=== PATIENT | male | born 1990 | race Caucasian/White ===

== ENCOUNTER 2017-11-10 10:22 | Emergency (ER) | payer BC ==
[~2017-11-10] VITALS: Ht 185.4 cm; Wt 145.0 kg
[2017-11-10] VITALS (7 sets, daily range): BP systolic 119–183; BP diastolic 59–88; PULSE 68–70; RESP 18–20; TEMP 98.3; O2SAT 97–99
[2017-11-10] MEDS ORDERED: SODIUM CHLOR 0.9% 1000 ML INJ 1,000 ML IV SCH (10:49)
[2017-11-10] MEDS ORDERED: ONDANSETRON HCL 4 MG/2 ML VIAL IVP ONE (11:00)
[2017-11-10] MEDS ORDERED: SODIUM CHLORIDE 0.9% FLUSH 10 ML FLUSH IV FLUSH PRN (11:00)
[2017-11-10] MEDS ORDERED: DICYCLOMINE HCL 20 MG/2 ML VIAL IM ONE (11:00)
[2017-11-10 11:45] LABS: BASOPHIL % 0.2 % (0.0-2.0); EOSINOPHIL % 0.4 % (0.0-4.0); HEMATOCRIT 41.6 % (39.0-51.0); HEMOGLOBIN 14.2 GM/DL (13.0-17.0); LYMPHOCYTE # 1.4 TH/MM3 (1.0-4.8); MEAN CELL VOLUME 86.5 FL (80.0-100.0); MEAN CORPUSCULAR HEMOGLOBIN 29.5 PG (27.0-34.0); MEAN CORPUSCULAR HGB CONC 34.1 % (32.0-36.0); MEAN PLATELET VOLUME 8.4 FL (7.0-11.0); MONO % 6.9 % (0.0-8.0); MONOCYTE # 0.6 TH/MM3 (0-0.9); NEUT % 75.5 % (16.0-70.0); PLATELET COUNT 298 TH/MM3 (150-450); RED CELL DISTRIBUTION WIDTH 14.2 % (11.6-17.2)
--- NOTE | 2017-11-10 11:47 | RADRPT ---
EXAM DATE/TIME: 11/10/2017 11:05 [facility] COMPARISON: No previous studies available for comparison. INDICATIONS : Pain behind sternum, across lower chest and upper abdomen that began this morning MEDICAL HISTORY : None. SURGICAL HISTORY : None. ENCOUNTER: Initial ACUITY: 1 day PAIN SCORE: 10/10 LOCATION: Bilateral chest FINDINGS: A single view of the chest demonstrates the lungs to be symmetrically aerated without evidence of mas s, infiltrate or effusion. The cardiomediastinal contours are unremarkable. Osseous structures are intact. CONCLUSION: No acute cardiopulmonary process. Jeovany Blanton MD on November 10, 2017 at 11:46 Board Certified Radiologist. This report was verified electronically.
--- NOTE | 2017-11-10 11:49 | RADRPT ---
EXAM DATE/TIME: 11/10/2017 11:06 [facility] COMPARISON: No previous studies available for comparison. INDICATIONS : Pain across both upper quadrants that began this morning MEDICAL HISTORY : None. SURGICAL HISTORY : None. ENCOUNTER: Initial ACUITY: 1 day PAIN SCORE: 10/10 LOCATION: Bilateral abdomen FINDINGS: A single erect view of the abdomen demonstrates the lower lungs to be clear. No evidence of free int raperitoneal gas. The visualized bowel loops are unremarkable. CONCLUSION: Radiographically benign abdomen. Jeovany Blanton MD on November 10, 2017 at 11:46 Board Certified Radiologist. This report was verified electronically.
[2017-11-10 11:57] LABS: INTERNATIONAL NORMALIZED RATIO 1.1 RATIO; PROTHROMBIN TIME - PATIENT 10.7 SEC (9.8-11.6)
[2017-11-10 12:07] LABS: ALBUMIN 3.5 GM/DL (3.4-5.0); AST (GOT) 15 U/L (15-37); BICARBONATE 26.2 MEQ/L (21.0-32.0); BLOOD UREA NITROGEN 6 MG/DL (7-18); CALCIUM 8.6 MG/DL (8.5-10.1); CHLORIDE 110 MEQ/L (98-107); CREATININE 0.91 MG/DL (0.60-1.30); GLOMERULAR FILTRATION RATE 99 ML/MIN (>89); GLUCOSE,RANDOM 94 MG/DL (74-106); SODIUM (NA) 142 MEQ/L (136-145)
[2017-11-10 12:10] LABS: ALKALINE PHOSPHATASE 73 U/L (45-117); ALT (GPT) 35 U/L (12-78); TOTAL BILIRUBIN ADULT 0.4 MG/DL (0.2-1.0); TOTAL PROTEIN 7.5 GM/DL (6.4-8.2)
[2017-11-10] MEDS ORDERED: DIATRIZOATE MEGLUM/DIATRIZOATE SOD 9 ML CUP ONE (12:57)
--- NOTE | 2017-11-10 14:20 | PD ---
HPI Chief Complaint: Abdominal Pain Time Seen by Provider: 10:46 Travel History International Travel<30 days: No Contact w/Intl Traveler<30days: No Traveled to known affect area: No History of Present Illness HPI This is a 26-year-old male with no reported past medical history, presents from work with complaints of chest pain and upper abdominal pain that started suddenly while at work. Patient reports that it is a sharp 8 out of 10 pain. There is radiation from his epigastrium into his mid chest. He states there is no associated nausea. He does report he had loose stools that were darker than normal over the last 24 hours. He denies any vomiting. He denies any nausea. He states he has not had previous pain like this before. There is no history of coronary artery disease. There is no history of pulmonary problems. There is no other complaints at the time of my examination. PFSH Past Medical History Medical History: Denies Significant Hx ?: Not Past Surgical History Surgical History: No Previous Surgery Social History Alcohol Use: Yes (occassional) Tobacco Use: No Substance Use: No Allergies-Medications (Allergen,Severity, Reaction): Coded Allergies: No Known Allergies (Unverified , 11/10/17) Reported Meds & Prescriptions Reported Meds & Active Scripts Active Prevacid (Lansoprazole) 30 Mg Capdr 30 Mg PO DAILY 30 Days Azithromycin 500 Mg Tab 500 Mg PO DAILY Review of Systems Except as stated in HPI: all other systems reviewed are Neg General / Constitutional: No: Fever, Chills HENT: No: Headaches, Lightheadedness, Neck Pain Cardiovascular: Positive: Chest Pain or Discomfort, No: Palpitations, Irregular Rhythm Respiratory: No: Cough, Shortness of Breath Gastrointestinal: Positive: Diarrhea ( loose stools that were darker than normal), Abdominal Pain (Epigastric), No: Nausea, Vomiting, Hematochezia Genitourinary: No: Frequency, Dysuria Musculoskeletal: No: Weakness, Pain Neurologic: No: Weakness, Dizziness Physical Exam Narrative GENERAL: Well-developed well-nourished male in no acute respiratory distress. SKIN: Focused skin assessment warm/dry. Patient does have old scars in his anterior upper chest. This appears to be related to a juvenile skin condition. HEAD: Atraumatic. Normocephalic. EYES: No scleral icterus. No injection or drainage. ENT: No nasal bleeding or discharge. Mucous membranes pink and moist. NECK: Trachea midline. Supple. CARDIOVASCULAR: Regular rate and rhythm. No murmur appreciated. RESPIRATORY: No accessory muscle use. Clear to auscultation. Breath sounds equal bilaterally. GASTROINTESTINAL: Abdomen soft, obese, nondistended. There is tenderness to palpation in his upper abdominal area bilaterally. There is no rebound but there is voluntary guarding. MUSCULOSKELETAL: No obvious deformities. No clubbing. No cyanosis. No edema. NEUROLOGICAL: Awake and alert. No obvious cranial nerve deficits. Motor grossly within normal limits. Normal speech. RECTAL EXAM: In the presence of the nurse, Parris. No masses or tenderness, stool is brown. Tested Hemoccult negative. Data Data Last Documented VS Vital Signs Date Time Temp Pulse Resp B/P (MAP) Pulse Ox O2 Delivery O2 Flow Rate FiO2 11/10/17 16:00 70 18 124/76 (92) 98 Room Air 11/10/17 10:41 98.3 Orders Orders Complete Blood Count With Diff (11/10/17 10:49) Comprehensive Metabolic Panel (11/10/17 10:49) Lipase (11/10/17 10:49) Prothrombin Time / Inr (Pt) (11/10/17 10:49) Act Partial Throm Time (Ptt) (11/10/17 10:49) Urinalysis - C+S If Indicated (11/10/17 10:49) Iv Access Insert/Monitor (11/10/17 10:49) Ecg Monitoring (11/10/17 10:49) Oximetry (11/10/17 10:49) Ondansetron Inj (Zofran Inj) (11/10/17 11:00) Sodium Chlor 0.9% 1000 Ml Inj (Ns 1000 M (11/10/17 10:49) Sodium Chloride 0.9% Flush (Ns Flush) (11/10/17 11:00) Abdomen, Upright Only (11/10/17 10:49) Chest, Single Ap (11/10/17 10:49) Dicyclomine Inj (Bentyl Inj) (11/10/17 11:00) Electrocardiogram (11/10/17 10:42) Ct Abd/Pel W Iv Contrast(Rout) (11/10/17 12:35) Oral Contrast - Adult (11/10/17 12:44) Diatrizoate Liq ( Gastromike Liq) (11/10/17 12:57) Iohexol 350 Inj (Omnipaque 350 Inj) (11/10/17 14:22) Electrocardiogram (11/10/17 17:29) Ckmb (Isoenzyme) Profile (11/10/17 17:29) Troponin I (11/10/17 17:29) Sodium Chlor 0.9% 1000 Ml Inj (Ns 1000 M (11/10/17 17:30) Lansoprazole Odt (Prevacid Odt) (11/10/17 18:45) Azithromycin (Zithromax) (11/10/17 18:45) Labs Laboratory Tests Test 11/10/17 11:10 11/10/17 15:50 11/10/17 17:10 White Blood Count 8.0 TH/MM3 Red Blood Count 4.80 MIL/MM3 Hemoglobin 14.2 GM/DL Hematocrit 41.6 % Mean Corpuscular Volume 86.5 FL Mean Corpuscular Hemoglobin 29.5 PG Mean Corpuscular Hemoglobin Concent 34.1 % Red Cell Distribution Width 14.2 % Platelet Count 298 TH/MM3 Mean Platelet Volume 8.4 FL Neutrophils (%) (Auto) 75.5 % Lymphocytes (%) (Auto) 17.0 % Monocytes (%) (Auto) 6.9 % Eosinophils (%) (Auto) 0.4 % Basophils (%) (Auto) 0.2 % Neutrophils # (Auto) 6.0 TH/MM3 Lymphocytes # (Auto) 1.4 TH/MM3 Monocytes # (Auto) 0.6 TH/MM3 Eosinophils # (Auto) 0.0 TH/MM3 Basophils # (Auto) 0.0 TH/MM3 CBC Comment DIFF FINAL Differential Comment Prothrombin Time 10.7 SEC Prothromb Time International Ratio 1.1 RATIO Activated Partial Thromboplast Time 25.0 SEC Blood Urea Nitrogen 6 MG/DL Creatinine 0.91 MG/DL Random Glucose 94 MG/DL Total Protein 7.5 GM/DL Albumin 3.5 GM/DL Calcium Level 8.6 MG/DL Alkaline Phosphatase 73 U/L Aspartate Amino Transf (AST/SGOT) 15 U/L Alanine Aminotransferase (ALT/SGPT) 35 U/L Total Bilirubin 0.4 MG/DL Sodium Level 142 MEQ/L Potassium Level 3.8 MEQ/L Chloride Level 110 MEQ/L Carbon Dioxide Level 26.2 MEQ/L Anion Gap 6 MEQ/L Estimat Glomerular Filtration Rate 99 ML/MIN Lipase 143 U/L Urine Color YELLOW Urine Turbidity CLEAR Urine pH 6.5 Urine Specific [place] GREATER THAN 1.050 Urine Protein TRACE mg/dL Urine Glucose (UA) NEG mg/dL Urine Ketones 10 mg/dL Urine Occult Blood NEG Urine Nitrite NEG Urine Bilirubin NEG Urine Urobilinogen LESS THAN 2.0 MG/DL Urine Leukocyte Esterase NEG Microscopic Urinalysis Comment CULT NOT INDICATED Total Creatine Kinase 49 U/L Troponin I LESS THAN 0.02 NG/ML MDM Medical Decision Making Medical Screen Exam Complete: Yes Emergency Medical Condition: Yes Differential Diagnosis ACS versus peptic ulcer disease versus pancreatitis versus gastroenteritis Narrative Course Male presents via EMS with complaints of chest pain and upper abdominal pain. Patient has no reported fevers, chills. Patient has reported dark stools. EKG and cardiac enzymes are within normal limits. The patient has very atypical chest pain at this time. Abdomen is soft with subjective tenderness. There is no rebound or guarding. The patient had a rectal exam that was heme-negative. CT and pelvis shows no evidence of acute intra-abdominal process. There is some atelectasis in the left lower lung that could be commercial representative of an early infiltrate. Given this, he will be treated with Zithromax 500 mg daily 5 days. He will be given his first dose here in the emergency department. He will also be given Prevacid 30 mg p.o. 1 dose here. He does report that he is going through acute life stressors and told the nurse that he is in the process of getting a divorce. I have informed him to have bland diet. He is instructed to follow-up with a primary care physician in his hometown of [place]. He states he will consider this. He is instructed to return to be DOS any worsening symptoms. Diagnosis Primary Impression: Atypical chest pain Additional Impressions: Abdominal pain Questionable early left lower lung infiltrate. Acute life stressors Additional Instructions: [place] diet. Follow-up with her primary care physician for further medical care. Return if feeling worse, shortness of breath, or any other reason. Med/Other Pt SpecificInfo: Prescription(s) given Scripts Lansoprazole (Prevacid) 30 Mg Capdr 30 MG PO DAILY for 30 Days, #30 CAP 0 Refills Prov: Emmanuel Melendrez MD 11/10/17 Azithromycin (Azithromycin) 500 Mg Tab 500 MG PO DAILY for Infection, #4 TAB 0 Refills Prov: Emmanuel Melendrez MD 11/10/17 Disposition: 01 DISCHARGE HOME Condition: Stable Emmanuel Melendrez MD Nov 10, 2017 14:20
[2017-11-10] MEDS ORDERED: IOHEXOL 350 MG/ML 10 ML VIAL (for RAD DIAG) IVCONTRAST ONE (14:22)
--- NOTE | 2017-11-10 15:05 | RADRPT ---
EXAM DATE/TIME: 11/10/2017 14:18 [facility] COMPARISON: No previous studies available for comparison. INDICATIONS : Upper abdominal pain, diarrhea IV CONTRAST: 96 cc Omnipaque 350 (iohexol) IV ORAL CONTRAST: Prescribed oral contrast ingested. RADIATION DOSE: 17.80 CTDIvol (mGy) ; Patient body habitus MEDICAL HISTORY : None SURGICAL HISTORY : None. ENCOUNTER: Initial ACUITY: 1 day PAIN SCALE: 6/10 LOCATION: Bilateral upper quadrant TECHNIQUE: Volumetric scanning of the abdomen and pelvis was performed. Using automated exposure control and ad justment of the mA and/or kV according to patient size, radiation dose was kept as low as reasonably achievable to obtain optimal diagnostic quality images. DICOM format image data is available electro nically for review and comparison. FINDINGS: LOWER LUNGS: Small, pleural-parenchymal consolidation posteriorly in the lower hemithorax. Right lung bases clear LIVER: Homogeneous density without lesion. There is no dilation of the biliary tree. No calcified gallston es. SPLEEN: Normal size without lesion. PANCREAS: Within normal limits. KIDNEYS: Normal in size and shape. There is no mass, stone or hydronephrosis. ADRENAL GLANDS: Within normal limits. VASCULAR: There is no aortic aneurysm. BOWEL/MESENTERY: The stomach, small bowel, and colon demonstrate no acute abnormality. There is no free intraperitone al air or fluid. ABDOMINAL WALL: Within normal limits. RETROPERITONEUM: There is no lymphadenopathy. BLADDER: No wall thickening or mass. REPRODUCTIVE: Within normal limits. INGUINAL: There is no lymphadenopathy or hernia. MUSCULOSKELETAL: Within normal limits for patient age. CONCLUSION: 1. Small pleural-parenchymal area of consolidation posteriorly in the left lower hemithorax. This cou ld represent atelectasis or possibly a very early infiltrate. 2. Otherwise negative. Jeovany Blanton MD on November 10, 2017 at 14:47 Board Certified Radiologist. This report was verified electronically.
[2017-11-10 16:21] LABS: BILIRUBIN, URINE NEG (NEG); BLOOD, URINE NEG (NEG); GLUCOSE,URINE NEG (NEG); KETONE, URINE 10 mg/dL (NEG); NITRITE,URINE NEG (NEG); PH, URINE 6.5 (5.0-8.5); URINE COLOR YELLOW (YELLW/STRAW); URINE LEUKOCYTE ESTERASE NEG (NEG)
[2017-11-10] MEDS ORDERED: SODIUM CHLOR 0.9% 1000 ML INJ 1,000 ML IV ONE (17:30)
[2017-11-10 18:08] LABS: TROPONIN I LESS THAN 0.02 NG/ML (0.02-0.05)
[2017-11-10] MEDS ORDERED: AZIT500T2 PO (18:34)
[2017-11-10] MEDS ORDERED: PREV30CA36 PO (18:34)
[2017-11-10] MEDS ORDERED: AZITHROMYCIN 250 MG TAB PO ONE (18:45)
[2017-11-10] MEDS ORDERED: LANSOPRAZOLE SOLUTAB 30 MG TAB PO ONE (18:45)
--- NOTE | 2017-11-11 22:38 | EKG ---
Date Performed: 11/10/2017 Time Performed: 17:53:58 PTAGE: 26 years EKG: Sinus rhythm NORMAL ECG PREVIOUS TRACING : 11/10/2017 10.42 Since the prior tracing, there has been no significant hansen DOCTOR: Zoe Huynh Interpretating Date/Time 11/11/2017 22:36:26
--- NOTE | 2017-11-11 22:56 | EKG ---
Date Performed: 11/10/2017 Time Performed: 10:42:52 PTAGE: 26 years EKG: Sinus rhythm NORMAL ECG NO PREVIOUS TRACING DOCTOR: Zoe Huynh Interpretating Date/Time 11/11/2017 22:54:12
== END 2017-11-10 22:18 | disposition home or self-care (01) ==
LOC: NEPC 10:22
DX: R07.89 Other chest pain (principal); R10.10 Upper abdominal pain, unspecified; R19.7 Diarrhea, unspecified
CPT/HCPCS: 71045; 74018; 74177; 80053; 81001; 82550; 83690; 84484; 85025; 85610; 85730; 93005; 96361; 96372; 96374; 99285; J0500; J2405; J7030; Q9963; Q9967